=== PATIENT | male | born 1955 | race Caucasian/White ===

== ENCOUNTER 2019-03-11 11:46 | Emergency (ER) | payer OTHER ==
[2019-03-11] MEDS ORDERED: HYDROCODONE/APAP 7.5/325 MG TAB ONE (12:58)
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
[2019-03-11] MEDS ORDERED: ONDANSETRON 4 MG/2 ML VIAL ONE ×2 (14:45→15:59)
[2019-03-11] MEDS ORDERED: FENTANYL CITR 100 MCG/2 ML ONE ×2 (14:45→15:56)
[2019-03-11 14:46] LABS: Absolute Lymphocytes (CBC) 1.2 K/uL (0.7-4.9); Basophils % 0.1 % (0-1.3); Eosinophils % 0.7 % (0-4.4); Hematocrit 46.7 % (39.6-49.0); Lymphocytes % 9.9 % (15.3-44.8); MPV 7.6 fL (7.6-11.3); RBC Red Blood Cell Count 5.14 M/uL (4.33-5.43)
[2019-03-11] MEDS ORDERED: TETANUS & DIPHTHERIA TOX,ADULT 0.5 ML VIAL ONE (14:46)
[2019-03-11] MEDS ORDERED: CEFAZOLIN/SWI 1gm 1 GM/10 ML SYR ONE (14:46)
[2019-03-11 15:03] LABS: BUN Blood Urea Nitrogen 19 mg/dL (7-18); Bicarbonate 26 mmol/L (21-32); Glucose Level 97 mg/dL (74-106); Sodium Level 138 mmol/L (136-145)
--- NOTE | 2019-03-11 15:32 | RAD REPORT ---
EXAM DESCRIPTION: RAD - Chest Single View - 03/11/2019 3:09 pm CLINICAL HISTORY: pre op Chest pain. COMPARISON: No comparisons FINDINGS: Portable technique limits examination quality. The lungs are grossly clear. The heart is normal in size. No displaced fractures. IMPRESSION: No acute intrathoracic process suspected.
[2019-03-11] MEDS: Ringers Lactate 1,000 ML IV ONE ×2 (15:35→15:38)
[2019-03-11] MEDS: BUPIVACAINE 0.5% PF 10 ML VIAL ONE ×4 (15:49→16:40)
[2019-03-11] MEDS ORDERED: PROPOFOL 200 MG/20 ML VIAL IV ONE (15:55)
[2019-03-11] MEDS ORDERED: MIDAZOLAM HCL 2 MG/2 ML INJ ONE (15:56)
[2019-03-11] MEDS ORDERED: LIDOCAINE 2% MPF 5 ML VIAL ONE (15:57)
[2019-03-11] MEDS ORDERED: DOXYCYCLINE 100 MG in NA CHLORIDE 0.9% 100 ML IVPB SCH (16:00)
--- NOTE | 2019-03-11 17:41 | RAD REPORT ---
EXAM DESCRIPTION: RAD - Elbow Right 2 View - 03/11/2019 5:25 pm CLINICAL HISTORY: OR 1 Pain and swelling, foreign body COMPARISON: <Comparisons> FINDINGS: Fluoroscopy time 0.1 minutes.
[2019-03-11] MEDS ORDERED: PNEUMOCOCCAL VACCINE 0.5 ML IMVAC ONE (18:00)
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
--- NOTE | 2019-03-12 02:38 | OP ---
Date of Procedure: 03/11/2019 Surgeon: Nick Levy MD Preoperative Diagnosis: Complex laceration left elbow with foreign body. Postoperative Diagnosis: Complex laceration left elbow with foreign body. Procedure: Pulse irrigation, debridement and closure of complex laceration left elbow 8 x 4 cm to th e subcutaneous tissue, muscle bone with removal of the foreign body and interpretation of fluoroscopy . Estimated Blood Loss: Minimal. Specimen: Debrided tissue and foreign body. Finding: As above. Anesthesia: General. Complications: None. The patient tolerated the procedure in stable condition, taken to the Recovery in good general condit ion. Procedure In Detail: The patient was brought to the OR and placed in supine position. General anest hesia was begun. The patient was prepped and draped in the usual sterile fashion. Fluoroscopy was u sed to identify the miniscule foreign body that was present and then pulse irrigation with 2 L of lacie ine was used to make irrigate the entire wound thoroughly. There was some foreign body that was imbe dded onto the ulna on the elbow part and this was removed with tweezers, and then after the entire wo und had no evidence of visible foreign body, an x-ray was done again to verify that there was no fore ign body visualized on the post-irrigation and debridement picture, then the edges of the wounds were debrided that were macerated to get good edges and then wound was mobilized and then a 2-0 chromic w as used to approximate the subcutaneous tissues and 3-0 nylon was used to close the skin. A quarter- inch Alfred drain was placed and secured with 3-0 nylon. Then sterile dressing was applied. The pa tient was awakened and taken to Recovery in good general condition. Discharge Note: The patient will go to day surgery and home when stable. Disposition: Home. Condition: Stable. Discharge Instructions: Resume home medications and diet. Activity as tolerated. No heavy lifting. Remove outer dressing in 2 days. Shower. Keep wound clean and dry. Change dressings with gauze, Kerlix and Federico daily. Cipro 500 mg p.o. q.12; doxycycline 100 mg p.o. q.12; Tylenol No. 3, 1 tablet p.o. q.4 p.r.n. pain. Follow up in my office in 10 days. Call for appointment. Reinforced dressing p.r.n. /MODL Voice ID: [id number] Report ID: [id number]
--- NOTE | 2019-03-12 10:51 | EKG ---
Test Date: 2019-03-11 Test Time: 15:13:09 [employer]: BETTE MEASUREMENT RESULTS: Intervals: Rate: 98 GA: 154 QRSD: 78 QT: 344 QTc: 439 Wayne: P: 53 GA: 154 QRS: 1 T: 34 INTERPRETIVE STATEMENTS: Normal sinus rhythm Normal ECG No previous ECG available for comparison Electronically Signed On 03-12-19 10:50:11 CDT by Ming Schaffer
== END 2019-03-11 17:46 | disposition home or self-care (01) ==
LOC: ER 11:46 → ERHOLD 15:44 → UNDOADMOB 15:44 → ER 17:46 → UNDODISOB 17:46
PROC: 0KC80ZZ Extirpation of Matter from Left Upper Arm Muscle, Open Approach (ICD-10-PCS; principal; 2019-03-11 16:15)
DX: S51.022A Laceration with foreign body of left elbow, initial encounter (principal); V29.9XXA Motorcycle rider (driver) (passenger) injured in unspecified traffic accident, initial encounter; K21.9 Gastro-esophageal reflux disease without esophagitis; Z79.899 Other long term (current) drug therapy
CPT/HCPCS: 36415; 71045; 80048; 85025; 88304; 90471; 90714; 93005; 96374; 96375; 99285; J0690; J2250; J2405; J2704; J3010